=== PATIENT | female | born 1960 ===

== ENCOUNTER 2023-12-19 09:04 | Day surgery (SDC) | payer OTHER ==
[2023-12-18 12:36] VITALS: BMI 21.2
[2023-12-19] MEDS ORDERED: Bupivacaine PF 0.5% 30 ML VIAL ONE (09:49)
[2023-12-19] MEDS ORDERED: CEFAZOLIN 2 GM VIAL ONE (09:49)
[2023-12-19] MEDS ORDERED: Lidocaine 1% PF 5 ML VIAL ONE (10:18)
[2023-12-19] MEDS ORDERED: PROPOFOL 20 ML ONE (10:18)
[2023-12-19] MEDS ORDERED: Ondansetron PF 4 MG/2 ML Vial ONE (10:18)
[2023-12-19] MEDS ORDERED: Dexamethasone 4 mg/ml Vial ONE (10:18)
[2023-12-19] MEDS ORDERED: fentaNYL 50 mcg/mL 1 mL Vial ONE (10:18)
[2023-12-19] MEDS ORDERED: ePHEDrine Sulfate 50 MG/10 ML VIAL ONE (12:08)
[2023-12-19] MEDS ORDERED: HYDROcodone/Acetaminophen 5/325 mg Tablet ONE (13:49)
== END 2023-12-19 14:15 | disposition home or self-care (01) ==
LOC: CSHSDC 09:04
PROVIDERS: ATTEND Podiatrist Foot & Ankle Surgery
PROC: 0QSN04Z Reposition Right Metatarsal with Internal Fixation Device, Open Approach (ICD-10-PCS; principal; 2023-12-19)
DX: M20.11 Hallux valgus (acquired), right foot (principal); E03.9 Hypothyroidism, unspecified; Z79.890 Hormone replacement therapy; Z79.899 Other long term (current) drug therapy
CPT/HCPCS: C1713; J0665; J1100; J2405; J2704; J3010